=== PATIENT | male | born 1990 | race Caucasian/White ===

== ENCOUNTER 2020-05-09 16:34 | Inpatient (IN) | payer MEDICAID, OTHER ==
[~2020-05-09] VITALS: Ht 162.6 cm; Wt 82.5 kg
[2020-05-09 19:54] LABS: BASOPHILS % (AUTO) 0.6 % (0.0-2.0); EOSINOPHILS % (AUTO) 0.7 % (1.0-6.0); HEMATOCRIT 42.2 % (41-53); HEMOGLOBIN 14.2 g/dL (13.5-17.5); LYMPHOCYTES # (AUTO) 1.4 K/uL (1.0-4.8); LYMPHOCYTES % (AUTO) 19.4 % (22.0-44.0); MEAN CORPUSCULAR HEMOGLOBIN 30.3 pg (26.0-34.0); MEAN CORPUSCULAR HGB CONC 33.6 G/dL (31.0-37.0); MEAN CORPUSCULAR VOLUME 90 fL (80-100); MONOCYTES # (AUTO) 0.5 K/uL (0.1-1.0); MONOCYTES % (AUTO) 6.8 % (2.0-9.0); NEUTROPHILS # (AUTO) 5.2 K/uL (1.8-7.7); NEUTROPHILS % (AUTO) 72.5 % (40.0-70.0); PLATELET COUNT (AUTO) 300 K/uL (150-450); RED BLOOD CELL COUNT(AUTO) 4.68 MIL/uL (4.50-5.90); RED CELL DISTRIBUTION WIDTH 12.5 % (11.5-14.5)
[2020-05-09 20:05] LABS: ANION GAP 9 mmol/L (8-16); CALCIUM, TOTAL 8.7 mg/dL (8.8-10.5); CARBON DIOXIDE 29 mmol/L (22-29); CHLORIDE 104 mmol/L (98-107); CREATININE 1.18 mg/dL (0.60-1.30); GLOMERULAR FILTR. RATE CALC > 60 mL/min (>60); GLUCOSE,RANDOM 86 mg/dL (70-110); SODIUM SERUM 142 mmol/L (136-145); UREA NITROGEN, BLOOD 17 mg/dL (7-18)
[2020-05-09 20:11] LABS: ALANINE AMINOTRANSFERASE 76 U/L (12-78); ALBUMIN 3.7 g/dL (3.4-5.0); ALKALINE PHOSPHATASE 91 U/L (46-116); ASPARTATE AMINOTRANSFERASE 40 U/L (15-37); BILIRUBIN,TOTAL 0.3 mg/dL (0.1-1.0); TOTAL PROTEIN, SERUM 7.1 g/dL (6.4-8.2)
[2020-05-09 20:29] LABS: COVID AG,FIA SOURCE NASOPHARYNGEAL
[2020-05-09] MEDS ORDERED: QUEtiapine FUMARATE 100 MG TABLET PO PRN (21:15)
[2020-05-09] MEDS ORDERED: LORazepam 2 MG TABLET PO PRN (21:15)
[2020-05-09] MEDS ORDERED: ZOLPIDEM TARTRATE 10 MG TABLET PO PRN (21:15)
[2020-05-09 21:24] LABS: AMPHET/METH SCREEN,URINE NEGATIVE (NEGATIVE); BARBITURATE SCREEN, URINE NEGATIVE (NEGATIVE); BENZODIAZEPINES SCREEN,URINE NEGATIVE (NEGATIVE); CANNABINOID SCREEN,URINE POSITIVE (NEGATIVE); COCAINE SCREEN,URINE NEGATIVE (NEGATIVE); METHADONE SCREEN, URINE NEGATIVE (NEGATIVE); OPIATE SCREEN,URINE NEGATIVE (NEGATIVE); PHENCYCLIDINE SCREEN,URINE NEGATIVE (NEGATIVE)
[2020-05-10 01:01] VITALS: BP 114/68
[2020-05-10 01:19] VITALS: BP 114/68
[2020-05-10] MEDS ORDERED: INFLUENZA VIRUS VACCINE QVS 2020-21 (6MO+)/PF 60 MCG/0.5 ML SYRINGE IM ONE (02:30)
[2020-05-10 07:47] LABS: CHOL/HDL RATIO 3.4 (4.2-7.3)
[2020-05-10] MEDS ORDERED: ONDANSETRON HCL 4 MG TABLET PO PRN (08:00)
[2020-05-10] MEDS ORDERED: DOCUSATE SODIUM 100 MG CAPSULE PO PRN (08:00)
[2020-05-10] MEDS ORDERED: MAG HYDROX/AL HYDROX/SIMETH ES 30 ML SUSPENSION UDCUP PO PRN (08:00)
[2020-05-10] MEDS ORDERED: CloNIDine HCL 0.1 MG TABLET PO PRN (08:00)
[2020-05-10] MEDS ORDERED: NICOTINE 14 MG/24 HOUR PATCH TD PRN (08:00)
[2020-05-10] MEDS ORDERED: GuaiFENesin/D-METHORPHAN [SUGAR-FREE] 200-20MG/10 ML SYRUP UDCUP PO PRN (08:00)
[2020-05-10] MEDS ORDERED: PETROLATUM,WHITE 28 GM JELLY TP PRN (08:00)
[2020-05-10] MEDS ORDERED: ALBUTEROL SULFATE HFA 90 MCG/PUFF 8 GM INHALER IH PRN (08:00)
[2020-05-10] MEDS ORDERED: IBUPROFEN 400 MG TABLET PO PRN (08:00)
[2020-05-10] MEDS ORDERED: MAGNESIUM HYDROXIDE SUSPENSION 30 ML UDCUP PO PRN (08:00)
[2020-05-10 08:21] VITALS: BP 104/60
[2020-05-10] MEDS: ESCITALOPRAM OXALATE 10 MG TABLET PO SCH (12:28)
[2020-05-10 16:18] VITALS: BP 117/60
[2020-05-11 01:09] VITALS: BP 106/64
[2020-05-11] MEDS: ESCITALOPRAM OXALATE 10 MG TABLET PO SCH (08:35)
[2020-05-11] MEDS: MULTIVITAMINS WITH MINERALS, THERAPEUTIC TABLET PO SCH (08:35)
[2020-05-11] MEDS: BusPIRone HCL 5 MG TABLET PO SCH ×2 (12:27→20:28)
[2020-05-11 13:10] VITALS: BP 121/71
[2020-05-11 16:16] VITALS: BP 126/78
[2020-05-11] MEDS: ACETAMINOPHEN 325 MG TABLET PO PRN (21:33)
[2020-05-12 01:35] VITALS: BP 122/72
[2020-05-12] MEDS: ESCITALOPRAM OXALATE 10 MG TABLET PO SCH (08:42)
[2020-05-12] MEDS: BusPIRone HCL 5 MG TABLET PO SCH ×2 (08:42→20:31)
[2020-05-12] MEDS: MULTIVITAMINS WITH MINERALS, THERAPEUTIC TABLET PO SCH (08:43)
[2020-05-12] MEDS ORDERED: ESCITALOPRAM OXALATE 10 MG TABLET PO ONE (09:30)
[2020-05-12 09:37] VITALS: BP 121/68
[2020-05-12 16:18] VITALS: BP 110/79
[2020-05-12] MEDS: ACETAMINOPHEN 325 MG TABLET PO PRN (21:21)
[2020-05-13 06:42] VITALS: BP 111/78
[2020-05-13] MEDS: MULTIVITAMINS WITH MINERALS, THERAPEUTIC TABLET PO SCH (08:18)
[2020-05-13] MEDS: ESCITALOPRAM OXALATE 10 MG TABLET PO SCH (08:18)
[2020-05-13] MEDS: BusPIRone HCL 5 MG TABLET PO SCH ×2 (08:18→20:06)
[2020-05-13 08:19] VITALS: BP 129/79
[2020-05-13 16:16] VITALS: BP 123/80
[2020-05-14 00:44] VITALS: BP 114/62
[2020-05-14] MEDS ORDERED: ESCI10 PO (06:31)
[2020-05-14] MEDS ORDERED: BUSP5TAB20 PO (06:31)
[2020-05-14 08:27] VITALS: BP 113/64
[2020-05-14] MEDS: BusPIRone HCL 5 MG TABLET PO SCH (09:35)
[2020-05-14] MEDS: ESCITALOPRAM OXALATE 10 MG TABLET PO SCH (09:35)
[2020-05-14] MEDS: MULTIVITAMINS WITH MINERALS, THERAPEUTIC TABLET PO SCH (09:35)
== END 2020-05-14 13:10 | disposition home or self-care (01) | DRG 751 ==
LOC: EMS 16:34 → B2S 20:00
DX: F33.2 Major depressive disorder, recurrent severe without psychotic features (principal); E66.3 Overweight; F12.10 Cannabis abuse, uncomplicated; F41.9 Anxiety disorder, unspecified; F64.0 Transsexualism; F60.3 Borderline personality disorder; Z20.822 Contact with and (suspected) exposure to COVID-19; R45.851 Suicidal ideations; K58.9 Irritable bowel syndrome, unspecified; Z68.31 Body mass index [BMI] 31.0-31.9, adult; Z79.899 Other long term (current) drug therapy; Z23 Encounter for immunization; Z88.8 Allergy status to other drugs, medicaments and biological substances
CPT/HCPCS: 87426; 90686; 99285; G0480